=== PATIENT | female | born 1975 | race American Indian/Alaskan Native ===

== ENCOUNTER 2020-08-10 10:40 | Outpatient (CLI) | payer MEDICAID ==
--- NOTE | 2020-08-10 12:37 | Ultrasound Report ---
Ultrasound-guided right sebaceous cyst aspiration/I&D HISTORY: ABNORMAL MAMMOGRAM. COMPARISON: None PROCEDURE: The risks (including but not limited to bleeding and infection) and benefits were explain ed to the patient and informed consent was obtained. A time out procedure was performed. The proced ure site was prepped and draped in the usual sterile fashion and lidocaine was used for local anesthe antonette. Under ultrasound guidance, the cystic subcutaneous structure under the right breast fold was determin ed to be a complex cystic structure measuring 1.5 cm in maximal dimension. An attempt was made to asp irate this structure but no material was removed. Following, the more superficial skin was anesthetiz ed and a small skin neck was made. Foul-smelling sebaceous material was then milked from this area un til no further material could be removed. I instructed the patient to keep this area clean and dry an d allow for further milking of sebaceous material. The patient tolerated the procedure well with no complications. IMPRESSION: Successful superficial sebaceous cyst I & D. Signer Name: Shaan Ovalle MD Signed: 08/10/2020 12:32 PM Workstation Name: [id number]
== END 2020-08-10 10:41 | disposition home or self-care (01) ==
LOC: US 10:40
PROVIDERS: ATTEND Surgery
DX: R92.8 Other abnormal and inconclusive findings on diagnostic imaging of breast (principal); L72.3 Sebaceous cyst
CPT/HCPCS: 10060